=== PATIENT | male | born 1985 | race Caucasian/White ===

== ENCOUNTER 2019-09-22 13:24 | Outpatient (CLI) | payer OTHER | END 2019-09-22 23:59 | disposition home or self-care (01) | LOC: STAR 13:24 | PROVIDERS: ATTEND Student in an Organized Health Care Education/Training Program | DX: Z01.818 Encounter for other preprocedural examination (principal); Z11.59 Encounter for screening for other viral diseases | CPT/HCPCS: U0001-CS ==

== ENCOUNTER 2019-09-28 12:02 | Observation (INO) | payer OTHER ==
[~2019-09-28] VITALS: Ht 195.6 cm; Wt 147.6 kg
[2019-09-28 12:27] VITALS: BP 157/108
[2019-09-28] MEDS ORDERED: CHLORHEXIDINE 15 ML UDC MM ONE (12:30)
[2019-09-28] MEDS ORDERED: ACETAMINOPHEN 500 MG TABLET ONE (12:36)
[2019-09-28] MEDS ORDERED: GABAPENTIN 300 MG CAPSULE ONE (12:36)
[2019-09-28] MEDS ORDERED: GABAPENTIN 300 MG CAPSULE PO ONE (13:00)
[2019-09-28] MEDS ORDERED: ACETAMINOPHEN 500 MG TABLET PO ONE (13:00)
[2019-09-28] MEDS ORDERED: LACTATED RINGERS 1,000 ML IV SCH (13:00)
[2019-09-28] MEDS ORDERED: MIDAZOLAM 1 MG/ML, 2ML ONE (14:53)
[2019-09-28] MEDS ORDERED: FENTANYL PF 250 MCG/5ML ONE (14:53)
[2019-09-28] MEDS ORDERED: EPINEPHRINE 1 MG/ML, 1ML ONE (15:55)
[2019-09-28] MEDS ORDERED: BUPIVACAINE/PF-EPI 0.25% 1:200K ONE (15:55)
[2019-09-28] MEDS ORDERED: BUPIVACAINE/PF 0.5% ONE (15:55)
[2019-09-28] MEDS ORDERED: FENTANYL PF 100 MCG/2ML IV PRN (16:00)
[2019-09-28] MEDS ORDERED: hydrALAzine 20 MG/ML, 1ML IV PRN (16:00)
[2019-09-28] MEDS ORDERED: OXYcodone 5 MG/5 ML ORAL.SOL UDC PO PRN ×2 (16:00→21:00)
[2019-09-28] MEDS ORDERED: HYDROmorphone 1 MG/ML, 1ML INJ IVPush PRN (16:00)
[2019-09-28] MEDS ORDERED: ONDANSETRON 2MG/ML, 2ML IVPush PRN ×2 (16:00→21:00)
[2019-09-28] MEDS ORDERED: LABETALOL 5MG/ML, 20ML IV PRN (16:00)
[2019-09-28] MEDS ORDERED: morphine SULFATE 10 MG/ML, 1ML IVPush PRN (16:00)
[2019-09-28] MEDS ORDERED: MEPERIDINE/PF 25MG/0.5ML IVPush PRN (16:00)
[2019-09-28] MEDS ORDERED: hydrALAzine 20 MG/ML, 1ML ONE ×2 (16:14→16:51)
[2019-09-28] MEDS ORDERED: CEFAZOLIN 1,000 MG ONE (16:27)
[2019-09-28] MEDS ORDERED: PROPOFOL 10 MG/ML, 20ML ONE (16:27)
[2019-09-28] MEDS ORDERED: GLYCOPYRROLATE 0.2MG/1ML, 5ML ONE (16:27)
[2019-09-28] MEDS ORDERED: ROCURONIUM 10MG/ML,5ML ONE (16:27)
[2019-09-28] MEDS ORDERED: NEOSTIGMINE 1 MG/ML, 10ML ONE (16:27)
[2019-09-28] MEDS ORDERED: FENTANYL PF 100 MCG/2ML ONE ×9 (16:43→19:38)
[2019-09-28] MEDS ORDERED: BUPIVACAINE/PF-EPI 0.25% 1:200K SQ ONE (17:00)
[2019-09-28] MEDS ORDERED: SUGAMMADEX 200 MG/2 ML IVPush ONE ×2 (17:30)
[2019-09-28] MEDS ORDERED: KETOROLAC 30 MG/1 ML ONE (17:31)
[2019-09-28] MEDS ORDERED: OXYcodone 5 MG/5 ML ORAL.SOL UDC ONE (19:33)
[2019-09-28] MEDS ORDERED: ONDANSETRON 2MG/ML, 2ML ONE (20:19)
[2019-09-28] MEDS ORDERED: DOCU-131 PO (20:40)
[2019-09-28] MEDS ORDERED: IBUP-1222 PO (20:41)
[2019-09-28] MEDS ORDERED: ACET-2065 PO (20:43)
[2019-09-28] MEDS ORDERED: OXYC5TAB2 PO (20:46)
[2019-09-28] MEDS ORDERED: HYDROmorphone 2 MG/ML, 1ML IV PRN (21:00)
[2019-09-28] MEDS ORDERED: IBUPROFEN 600 MG TABLET PO SCH (21:00)
[2019-09-28] MEDS ORDERED: KETOROLAC 30 MG/1 ML IV PRN (21:00)
[2019-09-28] MEDS ORDERED: ENOXAPARIN 40 MG/0.4 ML SQ SCH (21:00)
[2019-09-28] MEDS ORDERED: DIPHENHYDRAMINE 50 MG/ML, 1ML IVPush PRN (21:00)
== END 2019-09-28 22:20 | disposition home or self-care (01) ==
LOC: OUT 12:02 → 4NE 20:34 → OUT 21:20 → 4NE 21:46
PROVIDERS: ADMIT Student in an Organized Health Care Education/Training Program; ATTEND Student in an Organized Health Care Education/Training Program
DX: K40.00 Bilateral inguinal hernia, with obstruction, without gangrene, not specified as recurrent (principal); F17.200 Nicotine dependence, unspecified, uncomplicated
CPT/HCPCS: 49507; C1781; G0378; J0360; J0690; J1885; J2250; J2405; J2704; J2710; J3010; J7120; S2900; J0171; U0001-CS

== ENCOUNTER 2020-07-25 11:10 | Emergency (ER) | payer OTHER ==
[~2020-07-25] VITALS: Ht 195.6 cm; Wt 146.5 kg
[~2020-07-25 11:10] MED LIST: ACET-2065 PO; DOCU-131 PO; IBUP-1222 PO; OXYC5TAB2 PO
[2020-07-25] MEDS ORDERED: ACETAMINOPHEN 500 MG TABLET ONE (11:39)
[2020-07-25] MEDS ORDERED: ONDANSETRON 2MG/ML, 2ML ONE (11:39)
[2020-07-25] MEDS ORDERED: FAMOTIDINE 20 MG/2 ML ONE (11:39)
[2020-07-25] MEDS ORDERED: SODIUM CHLORIDE FLUSH 10ML SYR IVF ONE (12:00)
[2020-07-25] MEDS ORDERED: FAMOTIDINE 20 MG/2 ML IVPush ONE (12:00)
[2020-07-25] MEDS ORDERED: ACETAMINOPHEN 500 MG TABLET PO ONE (12:00)
[2020-07-25] MEDS ORDERED: ONDANSETRON 2MG/ML, 2ML IVPush ONE (12:00)
[2020-07-25] MEDS ORDERED: SODIUM CHLORIDE 0.9% 1,000ML IVBOLUS ONE ×2 (12:00→13:30)
--- NOTE | 2020-07-25 12:01 | NUR ---
pt c/o n/v/dzy and neck pain since 2nd covid vaccine yesterday. pt denies any other symptoms. pt's aox4. resps even and unlabored. all monitors in place. call light within reach.
--- NOTE | 2020-07-25 12:02 | NUR ---
piv est on L hand without any complications. pt medicated per emar. pt tolerated well. ns infusing at this time.
--- NOTE | 2020-07-25 12:06 | NUR ---
report given to fidelia peralta.
--- NOTE | 2020-07-25 12:18 | NUR ---
REPORT FROM DOMINIQUE
[2020-07-25] MEDS ORDERED: KETOROLAC 30 MG/1 ML ONE (12:23)
--- NOTE | 2020-07-25 12:28 | NUR ---
PT HS CO PFEIFFER. MEDICATED W TORADOL
[2020-07-25] MEDS ORDERED: KETOROLAC 30 MG/1 ML IV ONE (12:30)
[2020-07-25 13:20] VITALS: BP 110/58
--- NOTE | 2020-07-25 13:25 | NUR ---
SECOND IV BOLUS NS INFUSING. LAB AT BEDSIDE FOR DDIBER. SEEN BY MD ZIMMER
[2020-07-25 13:46] LABS: ANION GAP 8 mmol/L (5-15); CALCIUM 8.2 mg/dL (8.5-10.1); CHLORIDE 111 mmol/L (98-107); CREATININE 1.03 mg/dL (0.7-1.3)
--- NOTE | 2020-07-25 14:12 | NUR ---
Mick given discharge instructions and they have confirmed that they understand the instructions. Patient ambulatory with steady gait.
== END 2020-07-25 14:14 | disposition home or self-care (01) ==
LOC: ED 11:46
DX: R11.2 Nausea with vomiting, unspecified (principal); R19.7 Diarrhea, unspecified; R00.0 Tachycardia, unspecified; E66.9 Obesity, unspecified
CPT/HCPCS: 36415; 80048; 85379; 93005; 96361; 96374; 96375; 99284; J1885; J2405; J7030